=== PATIENT | male | born 1955 | race Caucasian/White ===

== ENCOUNTER 2022-02-15 08:59 | Observation (INO) | payer BC ==
[2022-02-15] MEDS ORDERED: NITROGLYCERIN SL TABS 0.4 MG TAB SUBLINGUAL PRN (09:23)
[2022-02-15] MEDS ORDERED: ALPRAZolam 0.5 MG TAB PO PRN (09:23)
[2022-02-15] MEDS ORDERED: ALPRAZolam 0.25 MG TAB PO PRN (09:23)
[2022-02-15] MEDS ORDERED: ASPIRIN 325 MG TAB PO STA (09:23)
[2022-02-15] MEDS ORDERED: ATORVASTATIN 80 MG TAB PO STA (09:23)
[2022-02-15] MEDS ORDERED: SODIUM CHLORIDE 0.9% 1,000 ML in EMPTY BAG 1 BAG IV SCH ×2 (09:30→22:00)
[2022-02-15 16:37] LABS: Glucose,Whole Blood 109 mg/dL (75-99)
[2022-02-15] MEDS ORDERED: ACETAMINOPHEN TAB 325 MG TAB PO PRN (16:39)
[2022-02-15] MEDS ORDERED: NALOXONE 0.4 MG/ML 1 ML VIAL IV PRN (16:39)
[2022-02-15] MEDS ORDERED: ONDANSETRON 4 MG/2 ML VIAL IVP PRN (16:39)
[2022-02-15] MEDS ORDERED: MELATONIN 3 MG TABLET PO PRN (16:39)
--- NOTE | 2022-02-15 16:39 | P.HPIM ---
History of Present Illness H&P Date: 02/15/22 Chief Complaint: abnormal stress test Patient is a 66-year-old male with a history of newly discovered prediabetes, high blood pressure, and high cholesterol who initially was seen at [facility] for elective heart cath. There he was found to have a blockage i n the RCA and was subsequently transferred here. Plan is for possible intervention in the a.m. Patient seen and examined at bedside. He states he follows with Mariah nurse practitioner at Dr. Carvalho's office. This initially started when he presented with having a fullness on the right side of head. They proceeded with CAT scans and then he ultimately follow up with Dr. Valdez in the office after having a positive stress test the plan was for calf. He denies any current chest pain, shortness breath, nausea, vomiting, lightheadedness, dizziness, numbness and tingling up into his jaw or down his arm. He denies any difficulties with the TR band on his right wrist other than slight swelling and pressure. Pertinent positives and negatives as discussed in HPI, a complete review of systems was performed and all other systems are negative. General: non toxic, no distress, appears at stated age Derm: warm, dry Head: atraumatic, normocephalic, symmetric Eyes: EOMI, no lid lag, anicteric sclera, pupils equal round reactive to light ENT: Nose and ears atraumatic, no thrush, no pharyngeal erythema Neck: No thyromegaly, no cervical lymphadenopathy, trachea midline, supple Mouth: no lip lesion, mucus membranes moist Cardiovascular: S1S2 reg, no murmur, positive posterior tibial pulse bilateral, mild swelling right hand due to TR band, capillary refill less than 2 seconds Lungs: clear to ascultation bilateral, no ronchi, no rales, no wheeze, no accessory muscle use Abdominal: soft, nontender to palpation, no guarding, no appreciable organomegaly, normal bowel sounds Ext: no gross muscle atrophy, muscle strength muscle strength 5 out of 5 in all 4 extremities, no contractures Neuro: CN II-XI grossly intact, light touch intact all 4 extremities, Psych: Alert, oriented, appropriate affect Assessment/plan: Obstructive coronary artery disease -IV fluids -Cardiology recommendations -Plan is for repeat cath with possible intervention on 02/16/22 Prediabetes -Hold metformin -Sliding-scale insulin - A1C 6 per patient - obtain records from Dr. aCrvalho's office Hypertension, controlled -Resume the home Norvasc and metoprolol, hold lisinopril due to thigh 2 days in a row Dyslipidemia -Statin therapy DVT prophylaxis: Heparin gtt Discussed with: patient, nursing Anticipated discharge: 1-[address]: home A total of 35 minutes was spent on the care of this complex patient more than 50% of the time was spent in counseling and care coordination. Past Medical History Additional Past Medical History / Comment(s): Pre diabetes, HTN, HLD Additional Past Surgical History / Comment(s): Knee surgery, Paulina, lithtripsy X 2, and renal stone extraction Smoking Status: Former smoker Past Alcohol Use History: Occasional Past Drug Use History: None Reported - Past Family History brother Additional Family Medical History / Comment(s): [place] in his late 60s Medications and Allergies Home Medications Medication Instructions Recorded Confirmed Type Aspirin EC [Ecotrin Low Dose] 81 mg PO HS 02/15/22 02/15/22 History Fluvastatin Sodium [Lescol] 40 mg PO HS 02/15/22 02/15/22 History Metoprolol Tartrate [Lopressor] 50 mg PO HS 02/15/22 02/15/22 History Sertraline HCl [Zoloft] 100 mg PO HS 02/15/22 02/15/22 History amLODIPine [Norvasc] 5 mg PO HS 02/15/22 02/15/22 History icosapent ethyL [Icosapent Ethyl] 2 gm PO BID 02/15/22 02/15/22 History lisinopriL 40 mg PO HS 02/15/22 02/15/22 History metFORMIN HCL 500 mg PO BID 02/15/22 02/15/22 History Allergies Allergy/AdvReac Type Severity Reaction Status Date / Time No Known Allergies Allergy Verified 02/15/22 14:20 Physical Exam Osteopathic Statement: *. No significant issues noted on an osteopathic structural exam other than those noted in the History and Physical/Consult. Vitals: Vital Signs Temp Pulse Resp BP BP Pulse Ox 02/15/22 10:44 64 16 133/67 149/53 97 02/15/22 09:31 97.7 F 67 16 129/64 132/56 95 Intake and Output 02/15/22 02/15/22 02/15/22 06:59 14:59 22:59 Intake Total 240 Balance 240 Intake: Oral 240 Other: Weight 87 kg
[2022-02-15] MEDS: INSULIN ASPART (NovoLOG) 100 UNIT/ML VIAL SQ SCH (17:58)
[2022-02-15 20:03] LABS: Glucose,Whole Blood 117 mg/dL (75-99)
[2022-02-15] MEDS: METOPROLOL TARTRATE 50 MG TAB PO SCH (20:19)
[2022-02-15] MEDS: ATORVASTATIN 10 MG TAB PO SCH (20:19)
[2022-02-15] MEDS: amLODIPine 5 MG TAB PO SCH (20:19)
[2022-02-15] MEDS: ASPIRIN 81 MG PO SCH (20:20)
[2022-02-15] MEDS: SERTRALINE 100 MG TAB PO SCH (20:20)
[2022-02-16 05:51] LABS: Glucose,Whole Blood 141 mg/dL (75-99)
[2022-02-16] MEDS: INSULIN ASPART (NovoLOG) 100 UNIT/ML VIAL SQ SCH ×3 (05:58→17:01)
[2022-02-16] MEDS ORDERED: ASPIRIN 325 MG TAB PO ONE (06:00)
[2022-02-16] MEDS ORDERED: ATORVASTATIN 80 MG TAB PO ONE (06:00)
[2022-02-16] MEDS: CLOPIDOGREL 75 MG TAB PO SCH (06:10)
[2022-02-16] MEDS ORDERED: HEPARIN SODIUM,PORCINE 2,500 UNIT in SODIUM CHLORIDE 0.9% 250 ML IRRIGATION PRN (07:00)
[2022-02-16] MEDS ORDERED: HEPARIN SODIUM,PORCINE 10,000 UNIT in SODIUM CHLORIDE 0.9% 1,000 ML IRRIGATION PRN (07:00)
[2022-02-16] MEDS ORDERED: HEPARIN SODIUM 1,000 UN/ML (10ML VL) ONE (07:26)
[2022-02-16] MEDS ORDERED: LIDOCAINE 1% INJ 10MG/ML (20 ML MDV) ONE (07:27)
[2022-02-16] MEDS: MIDAZOLAM 2 MG/2 ML VIAL IV ONE ×2 (07:50→08:09)
[2022-02-16] MEDS ORDERED: HYDROmorphone 0.5 MG/0.5 ML SYRINGE IVP ONE (07:50)
[2022-02-16] MEDS ORDERED: LIDOCAINE 1% INJ 10MG/ML (20 ML MDV) SQ ONE (08:00)
[2022-02-16] MEDS ORDERED: IV FLUID CONTINUATION 500 ML IV ONE (08:06)
[2022-02-16 08:15] LABS: Basophils # (A) 0.1 k/uL (0-0.2); Basophils % (A) 1 %; Eosinophils # (A) 0.2 k/uL (0-0.7); Eosinophils % (A) 2 %; HCT 43.2 % (39.0-53.0); HGB 14.1 gm/dL (13.0-17.5); Lymphocytes # (A) 1.7 k/uL (1.0-4.8); Lymphocytes % (A) 21 %; MCH 28.4 pg (25.0-35.0); MCHC 32.5 g/dL (31.0-37.0); MCV 87.2 fL (80.0-100.0); Mean Platelet Volume 7.5; Monocytes # (A) 0.4 k/uL (0-1.0); Monocytes % (A) 5 %; Neutrophils # (A) 5.7 k/uL (1.3-7.7); Neutrophils % (A) 71 %; Platelet Count 186 k/uL (150-450); RBC 4.95 m/uL (4.30-5.90); RDW 13.4 % (11.5-15.5); WBC 8.1 k/uL (3.8-10.6)
[2022-02-16 08:24] LABS: ALT 17 U/L (4-49); AST 19 U/L (17-59); African American GFR (CKD) >90 (>60 ml/min/1.73 sqM); Albumin 3.7 g/dL (3.5-5.0); Alkaline Phosphatase 76 U/L (38-126); Anion Gap 8 mmol/L; Blood Urea Nitrogen 13 mg/dL (9-20); Calcium 8.2 mg/dL (8.4-10.2); Carbon Dioxide 22 mmol/L (22-30); Chloride 109 mmol/L (98-107); Glucose 120 mg/dL (74-99); Non-African American GFR(CKD) >90 (>60 ml/min/1.73 sqM); Potassium 4.5 mmol/L (3.5-5.1); Sodium 139 mmol/L (137-145); Total Bilirubin 0.7 mg/dL (0.2-1.3); Total Protein 6.4 g/dL (6.3-8.2)
[2022-02-16] MEDS ORDERED: CLOPIDOGREL 75 MG TAB ONE ×2 (08:52→09:02)
[2022-02-16] MEDS ORDERED: IOPAMIDOL-370 125ML BTL INJ ONE ×2 (08:56→09:03)
[2022-02-16] MEDS ORDERED: CLOPIDOGREL 75 MG TAB PO ONE ×2 (08:57)
[2022-02-16] MEDS ORDERED: RX INFO: IV CONTRAST WAS GIVEN 1 EACH MISC MISCELLANE PRN (09:14)
[2022-02-16] MEDS ORDERED: MAG HYDROX/AL HYDROX/SIMETH 30 ML CUP PO PRN (09:14)
[2022-02-16] MEDS ORDERED: ZOLPIDEM 5 MG TAB PO PRN (09:14)
[2022-02-16] MEDS ORDERED: ATROPINE SULFATE 0.1 MG/ML 10ML SYRINGE IV PRN (09:14)
--- NOTE | 2022-02-16 09:14 | P.PCN ---
Date of Procedure: 02/16/22 Operative Findings: PERCUTANEOUS CORONARY INTERVENTION Performing physician Chase Valdez M.D. Procedure Performed: 1. Successful stenting of the mid right coronary artery using 3.5 x 23 mm Xience drug-eluting stent with an excellent angiographic results. 2. Successful stending of the proximal right coronary artery using 3.5 x 15 mm Xience drug-eluting stent with an excellent angiographic result. 3. Intravascular ultrasound of the right coronary artery and left main coronary artery 4. Selective right common femoral artery angiogram 5. Ultrasound-guided access of the right common femoral artery Indication: Chest discomfort in the 66-year-old gentleman who underwent myocardial perfusion imaging stress is on that revealed reversibility Approach: Right common femoral Complications: None Level of Sedation: Moderate with a sedation length of 56 minutes Procedure Discussion: After obtaining an informed consent the patient was brought to the cardiac manager laboratory. Please refer to diagnosed a heart catheterization was performed at [facility]. The right common femoral artery was cannulated using puncture technique under ultrasound guidance, the micropuncture wire passed easily then I place a 6- [place] sheath at the right common femoral artery. I did initially engage the left main using JL4 short-tip guide. Subsequently the LAD was wired using a run-through wire. After that I did intravascular ultrasound of the left main which was concerning and that came in to be not significant with an area stenosis of only 20%. Subsequently attempted engaging the right coronary artery using multiple guides but finally I was able to engaged using an a.l. 0.75 guide. I did wired using a run-through wire. I did balloon angioplasty using 30 by 15 mm balloon subsequently I deployed in the mid RCA 3.5 x 23 mm and in the proximal RCA 3.5 x 15 mm. And the vascular ultrasound was performed and showed that the stent in the proximal portion was not well opposed and for that reason I postdilated using 3.75 mm NC balloon The final angiogram showed excellent angiographic results and the procedure was completed without any complication Postprocedure Management: 1. Dual antiplatelet therapy for at least 6 months and preferably for a year 2. Aggressive cholesterol control 3. Follow-up with the patient
[2022-02-16 11:21] LABS: Glucose,Whole Blood 116 mg/dL (75-99)
--- NOTE | 2022-02-16 13:55 | P.PN ---
Progress Note - Text Progress Note Date: 02/16/[address] Valdez, patient was inadvertently admitted to our service. He will take over as admitting and attending physician.
[2022-02-16 16:34] VITALS: BMI 28.8
[2022-02-16 16:53] LABS: Glucose,Whole Blood 84 mg/dL (75-99)
[2022-02-16 19:06] LABS: Glucose,Whole Blood 140 mg/dL (75-99)
[2022-02-16] MEDS: amLODIPine 5 MG TAB PO SCH (20:22)
[2022-02-16] MEDS: ATORVASTATIN 10 MG TAB PO SCH (20:22)
[2022-02-16] MEDS: METOPROLOL TARTRATE 50 MG TAB PO SCH (20:22)
[2022-02-16] MEDS: SERTRALINE 100 MG TAB PO SCH (20:22)
[2022-02-16] MEDS: ASPIRIN 81 MG PO SCH (20:23)
[2022-02-16] MEDS ORDERED: lisinopriL 20 MG TAB PO SCH (21:00)
[2022-02-17 05:24] VITALS: RESP 16
[2022-02-17 05:34] LABS: Glucose,Whole Blood 128 mg/dL (75-99)
[2022-02-17] MEDS: INSULIN ASPART (NovoLOG) 100 UNIT/ML VIAL SQ SCH (05:39)
[2022-02-17] MEDS: CLOPIDOGREL 75 MG TAB PO SCH (08:13)
[2022-02-17 08:18] VITALS: BP 136/65; PULSE 69; TEMP 98.2
--- NOTE | 2022-02-17 09:00 | P.DS ---
Providers Date of admission: 02/15/22 11:50 Attending physician: Chase Valdez Consults: 02/15/22 16:44 Consult Physician Routine Consulting Provider: Chase Valdez Consult Reason/Comments: abnormal cath Do you want consulting provider notified?: Already Contacted 02/16/22 09:15 Consult Physician Routine Consulting Provider: Cardiology Ellis Consult Reason/Comments: Post Interventional patient Do you want consulting provider notified?: Already Contacted Primary care physician: Jose Alejandro [facility] Hospital Course: The patient is a pleasant 66-year-old gentleman with hypertension diabetes dyslipidemia was experiencing symptoms of chest discomfort and underwent myocardial perfusion imaging stress test and that came in to be abnormal showing reversible subsequently underwent a heart catheterization that revealed disease in the left main as well as RCA. Intravascular ultrasound CANDY of the left main was performed in to be not significant. Subsequently he underwent stenting of the RCA. The patient was seen this morning. He is asymptomatic from a cardiovascular standpoint of view. The right groin is soft and nontender and without any bruises. The patient is going to be discharged home on dual antiplatelet therapy and I'll follow-up with the patient next week in the office Plan - Discharge Summary Discharge Rx Participant: No New Discharge Prescriptions: New Atorvastatin Calcium [Lipitor] 80 mg PO DAILY #90 tablet Clopidogrel [Plavix] 75 mg PO DAILY #90 tab Continue icosapent ethyL [Icosapent Ethyl] 2 gm PO BID lisinopriL 40 mg PO HS amLODIPine [Norvasc] 5 mg PO HS Sertraline HCl [Zoloft] 100 mg PO HS Metoprolol Tartrate [Lopressor] 50 mg PO HS Aspirin EC [Ecotrin Low Dose] 81 mg PO HS Discontinued metFORMIN HCL 500 mg PO BID Fluvastatin Sodium [Lescol] 40 mg PO HS Discharge Medication List Aspirin EC [Ecotrin Low Dose] 81 mg PO HS 02/15/22 [History] Metoprolol Tartrate [Lopressor] 50 mg PO HS 02/15/22 [History] Sertraline HCl [Zoloft] 100 mg PO HS 02/15/22 [History] amLODIPine [Norvasc] 5 mg PO HS 02/15/22 [History] icosapent ethyL [Icosapent Ethyl] 2 gm PO BID 02/15/22 [History] lisinopriL 40 mg PO HS 02/15/22 [History] Atorvastatin Calcium [Lipitor] 80 mg PO DAILY #90 tablet 02/17/22 [Rx] Clopidogrel [Plavix] 75 mg PO DAILY #90 tab 02/17/22 [Rx] Follow up Appointment(s)/Referral(s): Chase Valdez MD [STAFF PHYSICIAN] - 1 Week
[2022-02-17 09:24] LABS: Basophils % (A) 1 %; Eosinophils # (A) 0.1 k/uL (0-0.7); Eosinophils % (A) 2 %; HCT 45.9 % (39.0-53.0); Lymphocytes # (A) 1.6 k/uL (1.0-4.8); Lymphocytes % (A) 23 %; MCHC 32.7 g/dL (31.0-37.0); MCV 88.5 fL (80.0-100.0); Mean Platelet Volume 7.5; Monocytes # (A) 0.3 k/uL (0-1.0); Monocytes % (A) 4 %; Neutrophils # (A) 4.9 k/uL (1.3-7.7); Neutrophils % (A) 70 %; Platelet Count 205 k/uL (150-450); RBC 5.18 m/uL (4.30-5.90); RDW 13.9 % (11.5-15.5)
[2022-02-17 09:43] LABS: African American GFR (CKD) >90 (>60 ml/min/1.73 sqM); Anion Gap 10 mmol/L; Blood Urea Nitrogen 12 mg/dL (9-20); Calcium 8.8 mg/dL (8.4-10.2); Carbon Dioxide 25 mmol/L (22-30); Chloride 106 mmol/L (98-107); Glucose 159 mg/dL (74-99); Non-African American GFR(CKD) 82 (>60 ml/min/1.73 sqM); Potassium 4.3 mmol/L (3.5-5.1); Sodium 141 mmol/L (137-145)
[2022-02-17 11:45] LABS: Glucose,Whole Blood 106 mg/dL (75-99)
== END 2022-02-17 12:32 | disposition home or self-care (01) ==
LOC: INTOOBSV 11:50 → 3SCARD 11:50
PROVIDERS: ADMIT Internal Medicine Interventional Cardiology; ATTEND Internal Medicine Interventional Cardiology
DX: I25.10 Atherosclerotic heart disease of native coronary artery without angina pectoris (principal); R06.02 Shortness of breath; R94.39 Abnormal result of other cardiovascular function study; I10 Essential (primary) hypertension; R73.03 Prediabetes; E78.00 Pure hypercholesterolemia, unspecified; E78.5 Hyperlipidemia, unspecified; Z90.49 Acquired absence of other specified parts of digestive tract; Z98.890 Other specified postprocedural states; Z87.442 Personal history of urinary calculi; Z87.891 Personal history of nicotine dependence; Z81.0 Family history of intellectual disabilities; Z79.84 Long term (current) use of oral hypoglycemic drugs; Z79.82 Long term (current) use of aspirin; Z79.899 Other long term (current) drug therapy
CPT/HCPCS: 92978; 80053; 80048; 85025 ×2; 87635; G0379; G0378 ×3; C9600; C1887 ×5; C1760; C1769 ×5; C1725 ×2; C1894; C1753; C1874 ×2; J2250; J2001; J1644 ×2; J1170; Q9967